=== PATIENT | female | born 1970 | race Caucasian/White ===

== ENCOUNTER → 2023-07-27 | Outpatient (CLI) | payer SELFPAY ==
--- NOTE | 2023-07-27 12:50 | RAD_ITS ---
INDICATION: PAIN EXAMINATION/TECHNIQUE: X-RAY - XR Spine Cervical 6 or More Views COMPARISON: None. FINDINGS: The vertebral bodies are normal in height. No definite fracture demonstrated. No subluxation. Straightening of the normal curvature. C1-2 alignment is maintained. Disc space narrowing with osteophytes at C5-C7. Mild neural foraminal encroachment on the left at C5-6, and mild C6-7. Prevertebral soft tissues are unremarkable. Flexion/extension: Little change in the position with extension, no subluxation. No subluxation with flexion. RAD/Cerv Spine Obl/Flex/Ext Comp IMPRESSION: No evidence of fracture or subluxation. Straightening of the normal curvature may be due to positioning or muscle spasm. No subluxation with flexion or extension, although little change in the position on extension. Degenerative changes. Electronically Signed: Jaylyn Burrell MD at 8:12 EDT ,
== END | disposition home or self-care (01) ==
PROVIDERS: PCP Family Medicine; Referring Provider Chiropractor Orthopedic; Visit Provider Chiropractor Orthopedic
DX: M99.01 Segmental and somatic dysfunction of cervical region (principal); M47.812 Spondylosis without myelopathy or radiculopathy, cervical region
CPT/HCPCS: 72052